=== PATIENT | female | born 1985 | race African-American/Black ===

== ENCOUNTER 2016-11-15 20:17 | Emergency (ER) | payer OTHER ==
[~2016-11-15] VITALS: Ht 170.2 cm; Wt 134.3 kg
[~2016-11-15 20:17] MED LIST: ABILIFY2 MG PO; BRINTELLIX5 MG PO; COGENTIN1 MG PO; DAYQUIL PO; IBUPROFEN800 MG PO; LITHIUM CARBON300 M1 PO; PROAIR HFA8.5 GM IH; PROTONIX40 MG PO; PROZAC10 MG PO; PROZAC40 MG PO; ZANTAC300 MG PO; ZYRTEC10 M3 PO
[2016-11-15 21:15] LABS: INFLUENZA A VIRAL ANTIGEN NEGATIVE; INFLUENZA B VIRAL ANTIGEN POSITIVE
[2016-11-15 21:33] LABS: HEMATOCRIT 41.5 % (36.0-46.0); MCH 23.6 PG (29.0-34.0); MCHC 30.6 G/DL (30.0-36.0); MCV 77.3 FL (83-99); PLATELET COUNT 343 K/uL (156-360); RBC DIS.WIDTH-CV 18.1 % (11.8-14.6); RED BLOOD COUNT 5.37 M/uL (3.80-5.20); WHITE BLOOD COUNT 13.2 K/uL (4.1-10.2)
[2016-11-15 21:49] LABS: CHLORIDE 103 mEq/L (99-109); POTASSIUM 4.3 mEq/L (3.7-5.4); SODIUM 136 mEq/L (136-147)
[2016-11-15 21:50] LABS: MAGNESIUM 1.6 mg/dL (1.3-2.7)
[2016-11-15 21:51] LABS: GLUCOSE 118 mg/dL (70-99)
[2016-11-15 21:53] LABS: ANION GAP 11 MEQ/L (2-14)
[2016-11-15 21:55] LABS: GFR ESTIMATE (CALCULATED) > 59 mL/min/
[2016-11-15 21:56] LABS: UREA NITROGEN (BUN) 8 mg/dL (9-23)
[2016-11-15] MEDS ORDERED: MOTRIN600 MG PO (23:06)
[2016-11-15] MEDS ORDERED: TESSALON PERLE100 MG PO (23:06)
[2016-11-15 23:22] VITALS: BP 142/88
[2016-11-15] MEDS ORDERED: ZOFRAN ODT8 MG PO (23:24)
== END 2016-11-15 23:25 | disposition home or self-care (01) ==
LOC: EME 20:17
DX: J10.1 Influenza due to other identified influenza virus with other respiratory manifestations (principal); B34.9 Viral infection, unspecified; R25.2 Cramp and spasm; R20.2 Paresthesia of skin; R73.03 Prediabetes; R35.8 Other polyuria; R63.1 Polydipsia; J45.909 Unspecified asthma, uncomplicated; Z72.0 Tobacco use
CPT/HCPCS: 71020; 80048; 83735; 85027; 87502; 99281; 99284; J0780; J1885; J7030

== ENCOUNTER 2017-07-04 14:39 | Observation (INO) | payer OTHER ==
[~2017-07-04] VITALS: Ht 170.2 cm; Wt 138.5 kg
[~2017-07-04 14:39] MED LIST changes: +MOTRIN600 MG PO; +TESSALON PERLE100 MG PO; +ZANTAC150 MG PO; -ZANTAC300 MG PO; +ZOFRAN ODT8 MG PO
[2017-07-04 15:12] LABS: HEMATOCRIT 37.1 % (36.0-46.0); MCH 23.7 PG (29.0-34.0); MCHC 30.5 G/DL (30.0-36.0); MCV 77.9 FL (83-99); MEAN PLAT.VOLUME 9.1 uM^3 (9.5-12.4); PLATELET COUNT 346 K/uL (156-360); RBC DIS.WIDTH-CV 16.3 % (11.8-14.6); RBC DIS.WIDTH-SD 46.1 % (39-53); RED BLOOD COUNT 4.76 M/uL (3.80-5.20); WHITE BLOOD COUNT 9.9 K/uL (4.1-10.2)
[2017-07-04 15:28] LABS: CHLORIDE 108 mEq/L (99-109); POTASSIUM 3.6 mEq/L (3.7-5.4); SODIUM 139 mEq/L (136-147)
[2017-07-04 15:30] LABS: GLUCOSE 103 mg/dL (70-99)
[2017-07-04 15:31] LABS: ANION GAP 8 MEQ/L (2-14)
[2017-07-04 15:34] LABS: GFR ESTIMATE (CALCULATED) > 59 mL/min/
[2017-07-04 15:35] LABS: UREA NITROGEN (BUN) 11 mg/dL (9-23)
[2017-07-04] MEDS ORDERED: DOXYCYCLINE HY100 M3 PO (18:01)
[2017-07-04] MEDS ORDERED: FLEXERIL5 MG PO (18:01)
[2017-07-04] MEDS ORDERED: MECLIZINE HCL25 MG PO (18:02)
[2017-07-04] MEDS ORDERED: MIDOL COMPLETE1 EACH PO (18:02)
[2017-07-04 22:06] VITALS: BP 132/64
[2017-07-04 23:33] VITALS: BP 142/66
[2017-07-05 04:02] VITALS: BP 113/72; BP 158/70
[2017-07-05 05:30] LABS: EOSINOPHIL (%) 0.8 % (0-5); EOSINOPHIL COUNT 0.1 K/uL (0-0.3); HEMATOCRIT 38.4 % (36.0-46.0); IMMATURE GRANULOCYTE (%) 0.3 % (0.0-0.7); INSTRUMENT ABS NEUTROPHIL CT 5.4 K/uL; LYMPHOCYTE COUNT 2.6 K/uL (1.0-2.8); MCH 23.1 PG (29.0-34.0); MCHC 29.4 G/DL (30.0-36.0); MCV 78.5 FL (83-99); MEAN PLAT.VOLUME 9.2 uM^3 (9.5-12.4); MONOCYTE (%) 7.7 % (3-12); MONOCYTE COUNT 0.7 K/uL (0-0.8); NEUTROPHIL COUNT 5.4 K/uL (1.8-6.4); PLATELET COUNT 367 K/uL (156-360); RBC DIS.WIDTH-CV 16.6 % (11.8-14.6); RED BLOOD COUNT 4.89 M/uL (3.80-5.20); WHITE BLOOD COUNT 8.8 K/uL (4.1-10.2)
[2017-07-05 06:02] LABS: ALKALINE PHOSPHATASE 90 IU/L (3-129); ANION GAP 7 MEQ/L (2-14); CHLORIDE 105 MEQ/L (99-109); GFR ESTIMATE (CALCULATED) > 59 mL/min/; GLUCOSE 92 mg/dL (70-99); HDL CHOLESTEROL 51 MG/DL (Desirable>=50); LDL CHOLESTEROL 77 mg/dL (Desirable<100); NON-HDL CHOLESTEROL 97 mg/dL (Desirable<160); SAMPLE HEMOLYSIS CHECK 0; SAMPLE ICTERIC CHECK 0; SAMPLE LIPEMIA CHECK 0; SODIUM 139 MEQ/L (136-147); TOTAL BILIRUBIN 0.2 MG/DL (0.0-1.0); TOTAL CHOLESTEROL 148 mg/dL (Desirable<200); TRIGLYCERIDES 98 MG/DL (Normal: <150); UREA NITROGEN (BUN) 13 mg/dL (9-23)
[2017-07-05 06:03] LABS: POTASSIUM 4.5 MEQ/L (3.7-5.4)
[2017-07-05 06:47] LABS: Estimated Average Glucose 128 mg/dL (70-123); HEMOGLOBIN A1c (GLYCOHEMOGLOB) 6.1 % HGB (Below 5.7)
[2017-07-05 07:50] VITALS: BP 122/78
[2017-07-05 11:14] VITALS: BP 118/77
[2017-07-05 15:15] VITALS: BP 116/64
[2017-07-05] MEDS ORDERED: LITHIUM CARBON300 M2 PO (15:50)
== END 2017-07-05 17:16 | disposition home or self-care (01) ==
LOC: EME 14:39 → EDOF 19:57 → ENRESERV 19:59 → 5WEST 21:53 → ENPENDDIS 07-05 → 5WEST 07-05 17:16
PROVIDERS: Physician Assistant
DX: G43.009 Migraine without aura, not intractable, without status migrainosus (principal); E87.6 Hypokalemia; F31.10 Bipolar disorder, current episode manic without psychotic features, unspecified; L73.2 Hidradenitis suppurativa; E66.3 Overweight; F41.1 Generalized anxiety disorder; D64.9 Anemia, unspecified; K21.9 Gastro-esophageal reflux disease without esophagitis; F90.9 Attention-deficit hyperactivity disorder, unspecified type; M19.90 Unspecified osteoarthritis, unspecified site; M72.2 Plantar fascial fibromatosis; T43.506A Underdosing of unspecified antipsychotics and neuroleptics, initial encounter; Z91.128 Patient's intentional underdosing of medication regimen for other reason; Z91.19 Patient's noncompliance with other medical treatment and regimen; Z82.49 Family history of ischemic heart disease and other diseases of the circulatory system; Z82.0 Family history of epilepsy and other diseases of the nervous system; Z81.8 Family history of other mental and behavioral disorders; Z87.891 Personal history of nicotine dependence; Z79.82 Long term (current) use of aspirin
CPT/HCPCS: 70450; 70551; 71020; 72141; 80048; 80053; 80061; 83036; 85025; 85027; 93005; 93880; 99202; 99281; 99285; G0378; G8978 GP CH; G8978 GP CJ; G8979 GP CH; G8980 GP CH; J1650; J1885

== ENCOUNTER 2017-07-25 10:36 | Inpatient (IN) | payer SELFPAY ==
[~2017-07-25] VITALS: Ht 170.2 cm; Wt 133.9 kg
[~2017-07-25 10:36] MED LIST changes: -BRINTELLIX5 MG PO; -DAYQUIL PO; +DOXYCYCLINE HY100 M3 PO; +FLEXERIL5 MG PO; -IBUPROFEN800 MG PO; -LITHIUM CARBON300 M1 PO; +LITHIUM CARBON300 M2 PO; +MECLIZINE HCL25 MG PO; +MIDOL COMPLETE1 EACH PO; -PROTONIX40 MG PO; -ZYRTEC10 M3 PO
[2017-07-25 12:40] LABS: EOSINOPHIL (%) 0 % (0-5); HEMATOCRIT 36.2 % (36.0-46.0); IMMATURE GRANULOCYTE (%) 0.6 % (0.0-0.7); IMMATURE GRANULOCYTE COUNT 0.1 K/uL; INSTRUMENT ABS NEUTROPHIL CT 11.8 K/uL; LYMPHOCYTE COUNT 1.8 K/uL (1.0-2.8); MCH 23.9 PG (29.0-34.0); MCHC 31.2 G/DL (30.0-36.0); MCV 76.7 FL (83-99); MEAN PLAT.VOLUME 9.3 uM^3 (9.5-12.4); MONOCYTE (%) 6.8 % (3-12); NEUTROPHIL (%) 80.1 % (45-76); NEUTROPHIL COUNT 11.8 K/uL (1.8-6.4); PLATELET COUNT 382 K/uL (156-360); RBC DIS.WIDTH-CV 17.4 % (11.8-14.6); RBC DIS.WIDTH-SD 47.9 % (39-53); RED BLOOD COUNT 4.72 M/uL (3.80-5.20); WHITE BLOOD COUNT 14.7 K/uL (4.1-10.2)
[2017-07-25 13:04] LABS: ANION GAP 16 MEQ/L (2-14); CHLORIDE 109 MEQ/L (99-109); POTASSIUM 3.8 MEQ/L (3.7-5.4); SAMPLE HEMOLYSIS CHECK 0; SAMPLE ICTERIC CHECK 0; SAMPLE LIPEMIA CHECK 0; SODIUM 141 MEQ/L (136-147); TOTAL BILIRUBIN 0.3 MG/DL (0.0-1.0)
[2017-07-25 13:12] LABS: ALKALINE PHOSPHATASE 92 IU/L (3-129); GFR ESTIMATE (CALCULATED) > 59 mL/min/; GLUCOSE 125 mg/dL (70-99); SERUM ETHYL ALCOHOL < 10 mg/dL; UREA NITROGEN (BUN) 14 mg/dL (9-23)
[2017-07-25 17:54] VITALS: BP 136/69
[2017-07-26 15:52] VITALS: BP 140/65
[2017-07-27 07:06] VITALS: BP 145/82
[2017-07-27 15:39] VITALS: BP 111/64
[2017-07-27] MEDS ORDERED: ZYRTEC10 M3 PO (17:26)
[2017-07-27] MEDS ORDERED: DAYQUIL PO (17:26)
[2017-07-27] MEDS ORDERED: LITHIUM CARBON300 M1 PO (17:26)
[2017-07-27] MEDS ORDERED: PROTONIX40 MG PO (17:26)
[2017-07-27] MEDS ORDERED: IBUPROFEN800 MG PO (17:26)
[2017-07-27] MEDS ORDERED: BRINTELLIX5 MG PO (17:26)
[2017-07-28 07:53] VITALS: BP 152/60
[2017-07-28 15:32] VITALS: BP 146/94
[2017-07-29 07:55] VITALS: BP 128/68
[2017-07-29 15:35] VITALS: BP 166/96
[2017-07-29 18:28] VITALS: BP 147/72
[2017-07-30 07:50] VITALS: BP 106/53
[2017-07-30] MEDS ORDERED: DOXYCYCLINE HY100 M3 PO (09:12)
[2017-07-30] MEDS ORDERED: QUETIAPINE FUM100 MG PO (09:12)
[2017-07-30] MEDS ORDERED: TEGRETOL-XR,CA100 MG PO (09:12)
== END 2017-07-30 10:51 | disposition home or self-care (01) | DRG 885 ==
LOC: EME 10:36 → EDOF 14:37 → 1WEST 14:37 → ENRESERV 17:53 → 1WEST 07-30 02:49
PROVIDERS: Emergency Medicine Emergency Medical Services
DX: F31.2 Bipolar disorder, current episode manic severe with psychotic features (principal); F17.200 Nicotine dependence, unspecified, uncomplicated; J45.909 Unspecified asthma, uncomplicated; K21.9 Gastro-esophageal reflux disease without esophagitis; L73.2 Hidradenitis suppurativa; E66.01 Morbid (severe) obesity due to excess calories; Z91.14 Patient's other noncompliance with medication regimen; Z91.19 Patient's noncompliance with other medical treatment and regimen; Z68.42 Body mass index [BMI] 45.0-49.9, adult
CPT/HCPCS: 80053; 85025; 90837; 97150 GO; 99281; 99285; G0480; J1630; J2060; J2250

== ENCOUNTER → 2017-11-03 | Outpatient (CLI) | payer BC ==
[~2017-11-03] MED LIST changes: +BRINTELLIX5 MG PO; +DAYQUIL PO; +IBUPROFEN800 MG PO; +LITHIUM CARBON300 M1 PO; +PROTONIX40 MG PO; +QUETIAPINE FUM100 MG PO; +TEGRETOL-XR,CA100 MG PO; +ZYRTEC10 M3 PO
[2017-11-03 18:24] LABS: APPEARANCE CLEAR, COLORLESS; CSF EOSINOPHILS 0 % (0-25); CSF TUBE NUMBER TUBE #4; MONONUCLEAR WBC'S 100 % (50-90); POLYNUCLEAR WBC'S 0 % (0-3); RED CELL COUNT 72 /MM^3 (0-1); WHITE CELL COUNT 1 /MM^3 (0-5)
[2017-11-03 18:36] LABS: CSF PROTEIN 18 mg/dL (15-45)
[2017-11-03 18:41] LABS: GLUCOSE, CSF 67 mg/dL (40-80)
[2017-11-03 19:06] LABS: APPEARANCE (RECHECK) CLEAR, COLORLESS; CSF TUBE NUMBER (RECHECK) TUBE #1; RED CELL COUNT (RECHECK) 3 /MM^3 (0-1)
== END | disposition home or self-care (01) ==
LOC: RAD 10-29 15:00
PROVIDERS: Psychiatry & Neurology Neurology
PROC: 009U3ZZ Drainage of Spinal Canal, Percutaneous Approach (ICD-10-PCS; principal; 2017-11-03)
DX: R51 Headache (principal)
CPT/HCPCS: 62270; 77003; 82945; 84157; 86592 90; 86617 90; 86618 90; 87102; 87205; 87210; 89051